=== PATIENT | female | born 1935 | race Caucasian/White ===

== ENCOUNTER 2020-10-24 09:11 | Outpatient (REF) | payer MEDICARE, OTHER, SELFPAY ==
--- NOTE | 2020-10-24 09:14 | EMG_ITS ---
This is an 84-year-old woman with a history of numbness in both heels for a few months. She has no other complaints. No medication. She is not diabetic. PHYSICAL EXAMINATION: On examination, she is alert and oriented with normal intellectual functions. Cranial nerves II through XII are normal. Muscle tone and strength are normal in all 4 extremities. Reflexes hypoactive. IMPRESSION: Sensory neuropathy. Nerve conduction EMG study: Axonal, sensory greater than motor, diffuse peripheral neuropathy in the lower extremities. EMG of the right L4-S1 innervated muscles consistent with chronic distal neuropathic changes of neuropathy. MD BLANQUITA Scott/MODL / [id number]
== END 2020-10-24 09:12 | disposition home or self-care (01) ==
LOC: HO.NEURO 09:11
PROVIDERS: Visit Provider Internal Medicine
DX: G62.9 Polyneuropathy, unspecified (principal); R20.8 Other disturbances of skin sensation
CPT/HCPCS: 95885; 95913

== ENCOUNTER 2021-03-22 09:02 | Outpatient (REF) | payer MEDICARE, OTHER, SELFPAY ==
--- NOTE | ~2021-03-22 | MM_ITS ---
EXAMINATION: MM SCREENING DIGITAL BREAST TOMOSYNTHESIS, BILATERAL CLINICAL INFORMATION: Screening. Asymptomatic. The lifetime risk of breast cancer based on the Tyrer-Cuzick Model is 1%. COMPARISON: Mammography: 08/03/2018, 06/11/2017, 03/20/2016 TECHNIQUE: Digital breast tomosynthesis is performed in both the craniocaudal and mediolateral oblique views along with computer-aided detection (CAD). Synthesized 2D images are generated from the tomosynthesis. FINDINGS: There are scattered areas of fibroglandular density (ACR BI-RADS breast composition Category b). There are no significant masses, abnormal calcifications, or other abnormalities. Parenchymal pattern is similar to prior studies. Scattered asymmetries are stable. There is no developing density. No interval architectural abnormality. Again, there are scattered bilateral predominantly ductal secretory calcifications as well as some punctate round and vascular calcifications. The axilla are unremarkable. There are some dermal lesions overlying each breast. MM/MM tomosynthesis screening BI IMPRESSION: No significant changes from prior exams. ASSESSMENT: BI-RADS 2: Benign RECOMMENDATION: Routine annual mammography screening. This patient's information was entered into a reminder system with a target due date for their next mammogram.
== END 2021-03-22 09:03 | disposition home or self-care (01) ==
LOC: HO.MAMMO 09:02
PROVIDERS: PCP Internal Medicine; Visit Provider Internal Medicine
DX: Z12.31 Encounter for screening mammogram for malignant neoplasm of breast (principal)
CPT/HCPCS: 77063; 77067

== ENCOUNTER 2021-05-03 10:46 | Outpatient (REF) | payer MEDICARE, OTHER, SELFPAY ==
--- NOTE | ~2021-05-03 | MM_ITS ---
EXAMINATION: BONE DENSITOMETRY CLINICAL INDICATION: Other specified disorders of bone density and structure. COMPARISON: Previous BD dated 05/11/2018 and baseline BD dated 01/01/2006. TECHNIQUE: Using a [employer] DXA System (software version: 13.1) manufactured by [employer], dual-energy x-ray absorptiometry was performed of the lumbar spine and left hip. The images are of good technical quality. Summary results are attached. FINDINGS: AP SPINE L1-L4: Current: BMD 1.121 g/cm2, Z-score 0.7, T-score -0.5, normal, 1.4% increase from previous, 4.1% decrease from baseline (<5% change is not significant). Prior: BMD 1.106 g/cm2. Baseline: BMD 1.169 g/cm2. LEFT FEMUR, NECK: Current: BMD 0.914 g/cm2, Z-score 1.0, T-score -0.9, normal. Prior: BMD 0.945 g/cm2. Baseline: BMD 1.026 g/cm2. LEFT FEMUR, TOTAL: Current: BMD 0.979 g/cm2, Z-score 1.5, T-score -0.2, normal, 5.0% decrease from previous, 6.5% decrease from baseline (<5% change is not significant). Prior: BMD 1.031 g/cm2. Baseline: BMD 1.047 g/cm2. IDENTIFIED RISK FACTORS: Height loss, menopause, hysterectomy, bilateral oophorectomy. HISTORY OF FRACTURE: None listed. MEDICATIONS: Vitamin D. MM/XR DEXA axial skeleton IMPRESSION: 1. DIAGNOSIS: Normal bone density based on the lowest T-score value of -0.9 in the femoral neck applying World Health Organization criteria. 2. 10-YEAR FRACTURE RISK PREDICTION, FRAX: According to the guidelines, FRAX calculation should only be performed on patients in the osteopenia bone density category. Therefore, FRAX was not performed on this patient. 3. Treatment Recommendations: NOF guidelines recommend consideration for treatment in postmenopausal women and men age 50 and older presenting with the following: -A hip or vertebral (clinical or morphometric) fracture. -T-score less than or equal to -2.5 at the femoral neck or spine after appropriate evaluation to exclude secondary causes. -Low bone mass at the hip or spine and a 10-year fracture probability by FRAX of greater than or equal to 3% for hip fracture or greater than or equal to 20% for major osteoporotic fracture based on the [place] adapted WHO algorithm. 4. Other Recommendations: All treatment decisions require clinical judgment and consideration of individual patient factors, including patient preferences, comorbidities, previous drug use, risk factors not captured in the FRAX model (e.g. frailty, falls, vitamin D deficiency, increased bone turnover, interval significant decline in bone density) and possible under or overestimation of fracture risk by FRAX. FUTURE SCAN RECOMMENDATION: People with diagnosed cases of osteoporosis or at high risk for fracture should have regular bone mineral density tests. For patients eligible for Medicare, routine testing is allowed once every 2 years. The testing frequency can be increased to one year for patients who have rapidly progressing disease, those who are receiving or discontinuing medical therapy to restore bone mass, or have additional risk factors.
== END 2021-05-03 10:47 | disposition home or self-care (01) ==
LOC: HO.MAMMO 10:46
PROVIDERS: PCP Internal Medicine; Visit Provider Nurse Practitioner Acute Care
DX: Z13.820 Encounter for screening for osteoporosis (principal); M85.80 Other specified disorders of bone density and structure, unspecified site; Z78.0 Asymptomatic menopausal state; Z98.890 Other specified postprocedural states; Z79.899 Other long term (current) drug therapy
CPT/HCPCS: 77080

== ENCOUNTER 2022-05-07 10:16 | Outpatient (REF) | payer MEDICARE, OTHER, SELFPAY ==
--- NOTE | ~2022-05-07 | MM_ITS ---
EXAMINATION: MM SCREENING DIGITAL BREAST TOMOSYNTHESIS, BILATERAL CLINICAL INFORMATION: Screening. Asymptomatic. Family history breast cancer, sister. COMPARISON: Mammography: 03/22/2021, 08/03/2018, 06/11/2017 TECHNIQUE: Digital breast tomosynthesis is performed in both the craniocaudal and mediolateral oblique views along with computer-aided detection (CAD). Synthesized 2D images are generated from the tomosynthesis. FINDINGS: There are scattered areas of fibroglandular density (ACR BI-RADS breast composition Category b). There are no significant masses, abnormal calcifications, or other abnormalities. No architectural abnormality or developing density or significant change from prior studies. There are scattered bilateral benign ductal secretory and some round and vascular calcifications. Dermal lesions are seen overlying the each breast. There is an intramammary node posterior upper outer left breast. The axilla are unremarkable. No significant changes. MM/MM tomosynthesis screening BI IMPRESSION: No mammographic evidence of malignancy. ASSESSMENT: BI-RADS 2: Benign RECOMMENDATION: Routine annual mammography screening. This patient's information was entered into a reminder system with a target due date for their next mammogram.
== END 2022-05-07 10:17 | disposition home or self-care (01) ==
LOC: HO.MAMMO 10:16
PROVIDERS: PCP Internal Medicine; Visit Provider Internal Medicine
DX: Z12.31 Encounter for screening mammogram for malignant neoplasm of breast (principal)
CPT/HCPCS: 77063; 77067

== ENCOUNTER 2022-10-02 09:47 | Outpatient (AMB) | payer MEDICARE, OTHER, SELFPAY ==
[2022-10-02 10:35] VITALS: BP 140/82; PULSE 79; O2SAT 98; BMI 28.9
--- NOTE | 2022-10-02 10:35 | MHC.PC.OV ---
Vital Signs 10/02/22 10:35 Height 5 ft 8 in Weight 190 lb BMI 28.9 BP 140/82 H Blood Pressure Location Lt brachial Position Sitting Pulse 79 Pulse Source Pulse Oximeter Pulse Oximetry (%) 98 Oxygen Delivery Method Room Air Intake Visit Reasons: PE Allergies aspirin Allergy (Unknown, Verified 10/02/22 10:36) Unknown chlorpheniramine [From Tussionex] Allergy (Unknown, Verified 10/02/22 10:36) Unknown codeine Allergy (Unknown, Verified 10/02/22 10:36) Unknown hydrochlorothiazide Allergy (Unknown, Verified 10/02/22 10:36) nose bleed hydrocodone [From Tussionex] Allergy (Unknown, Verified 10/02/22 10:36) Unknown simvastatin Allergy (Unknown, Verified 10/02/22 10:36) Unknown Medication List - Last Reconciled 10/02/22 by Deann Roberts MD acetaminophen (Tylenol) 325 mg PO QID PRN atorvastatin 10 mg PO DAILY cholecalciferol (vitamin D3) 25 mcg PO DAILY lisinopril 5 mg PO DAILY vitamin B complex 1 tab PO DAILY Tobacco use date assessed: 10/02/22 Fall risk assessment: No Falls in past year Last assessed Fall Risk: 10/02/22 Dental Screening Dental Screen Date: 10/02/22 Did you have a dental visit in the last 12 months?: Yes Did you have a dental problem in the last 6 months where you did not have access to dental care?: No Was dental information given to patient?: Patient has dentist HPI PE HPI Details 86-year-old female with a history of hypertension coming in for physical exam October last seen. high BP noted adn advsied monitor and record. [facility] Medical History (Updated 10/02/22 @ 11:27 by Deann Roberts MD) GERD (gastroesophageal reflux disease) Hypercholesterolemia Hypertension Surgical History History of bilateral cataract extraction History of total abdominal hysterectomy and bilateral salpingo-oophorectomy Family History (Updated 10/02/22 @ 10:39 by Bessy Ledezma CMA) Father Cancer Mother Hypertension Stroke Social History Housing: Condominium Alcohol intake: never Patient Tobacco Use Status: Never used Tobacco e-Cigarette/Vaping Use: Never Used Second Hand Smoke Exposure: No service: No Current occupational status: retired Cognitive needs: No Hearing needs: Yes (hearing aids) Vision needs: Yes (glasses) Questionnaire PHQ-9 Over the last 2 weeks, how often have you been bothered by any of the following problems? 1. Little interest or pleasure in doing things: not at all 2. Feeling down, depressed, or hopeless: not at all 3. Trouble falling or staying asleep, or sleeping too much: not at all 4. Feeling tired or having little energy: not at all 5. Poor appetite or overeating: not at all 6. Feeling bad about yourself - or that you are a failure or have let yourself or your family down: not at all 7. Trouble concentrating on things, such as reading the newspaper or watching television: not at all 8. Moving or speaking so slowly that other people could have noticed. Or the opposite - being so fidgety or restless that you have been moving around a lot more than usual: not at all 9. Thoughts that you would be better off or of hurting yourself in some way: not at all Total score: 0 Depression Screening Interpretation: Negative Source: Developed by Drs. Brannon Ragland, Yomaira Su, Kyrie Person and colleagues, with an educational giselle from [employer]. Thrive Questionnaire Date Thrive assessed: 10/02/22 I am a: Patient What is your living situation today?: I have a steady place to live Within the past 12 months, did the food you bought not last and you didn't have the money to get more?: Never true Within the past 12 months, did you worry whether your food would run out before you got money to buy more?: Never true Do you have trouble paying for medicines?: No Do you have trouble getting transportation to medical appointments?: No Do you have trouble paying your heating and electricity bill?: No Do you have trouble taking care of your child, family member or friend?: No Do you have trouble with day-to-day activities such as bathing, preparing meals, shopping, managing finances, etc.?: No Are you currently unemployed and looking for a job?: No Are you interested in more education?: No Currently or been in a relationship where the following occur: no concerns reported AUDIT C Alcohol Use Questionnaire (AUDIT-C) 1. How often do you have a drink containing alcohol?: Never 3. How often do you have six or more drinks on one occasion?: Never Total Score: 0 MONO-7 AMB Questionnaire MONO-7 Date MONO - 7 assessed: 10/02/22 Feeling nervous, anxious, or on edge: 0 = Not at all Not being able to stop or control worryin = Not at all Worrying too much about different things: 0 = Not at all Trouble relaxin = Not at all Being so restless that it is hard to sit still: 0 = Not at all Becoming easily annoyed or irritable: 0 = Not at all Feeling afraid as if something awful might happen: 0 = Not at all Total MONO-7 score (0-4 normal; 5-9 mild; 10-14 moderate; 15-21 severe): 0 Source: Developed by Drs. Brannon Ragland, Yomaira Su, Kyrie Person and colleagues, with an educational giselle from [employer]. Review of Systems Const Denies poor appetite and Denies weakness Eyes Denies no additional complaints ENT Reports Normal hearing present, Denies dizziness, Denies nasal congestion, Denies tinnitus and Denies sore throat Card Denies chest pain, Denies syncope, Denies rapid heart rate and Denies dyspnea Resp Denies cough and Denies dyspnea GI Denies change in stool character, Reports constipation, Denies diarrhea, Denies nausea and Denies vomiting Denies urinary frequency, Denies difficulty voiding and Denies dysuria Neuro Reports Normal hearing present, Denies confusion, Denies dizziness, Denies syncope and Denies weakness Psych Denies confusion Physical exam (Primary Care) Vital Signs: Last Vital Signs Pulse 79 10/02/22 10:35 BP 140/82 H 10/02/22 10:35 Pulse Ox 98 10/02/22 10:35 Oxygen Delivery Method Room Air 10/02/22 10:35 BMI result Body Mass Index 28.9 Tobacco/Smoking Status: Tobacco use Status Tobacco use date assessed 10/02/22 10/02/22 10:39 Patient Tobacco Use Status Never used Tobacco 10/02/22 10:37 e-Cigarette/Vaping Use Never Used 10/02/22 10:37 PHQ-9: PHQ-9 Score PHQ-9: Total score 0 10/02/22 11:11 Depression Screening Interpretation: Negative Thrive Assessment: Date of Thrive Assessment Date Thrive assessed 10/02/22 10/02/22 10:39 Currently or been in a relationship where the following occur: no concerns reported Const General: No confusion Orientation/consciousness: No confusion HENMT Head: Yes normocephalic Ears: external ears normal and TM's normal bilaterally Face and sinus: Yes normal facial exam Mouth: moist mucous membranes Throat: Yes tonsils normal Eyes Conjunctivae: conjunctivae normal Pupils: Equal, round and reactive pupils present and Pupil accommodation reflex normal Direct Ophthalmoscopy: normal light reflex Neck Neck: No lymphadenopathy Thyroid: Thyroid normal Chest Chest palpation & inspection: normal inspection of the chest Resp Effort & Inspection: normal respiratory effort and no audible wheezes Auscultation: clear to auscultation bilaterally, no crackles, no wheezes and lung sounds not diminished Cardio Rate: regular rate Rhythm: regular rhythm Peripheral pulses: radial pulses present and dorsalis pedis present GI Other: Guaiac negative stool, multiple hyper pigmented keratotic lesions on the chest as well as on the back Palpation (GI): no masses Auscultation: normal bowel sounds and normoactive bowel sounds Skin General skin exam: no rashes or lesions noted Rashes: no rashes Neuro General: No confusion Cranial nerves: Yes Equal, round and reactive pupils present and Yes Normal hearing present Cognition (Neuro): normal cognition Gait exam (Neuro): Normal gait present Motor exam (neuro): 5/5 motor strength present throughout Deep tendon reflexes (DTR's): Right brachioradialis reflex intensity grade: 2+, Left brachioradialis reflex intensity grade: 2+, Right patellar reflex intensity grade: 2+ and Left patellar reflex intensity grade: 2+ Extrem General: No edema Assessment and Plan Assessment & Plan (1) Annual physical exam: Code(s): Z00.00 - Encounter for general adult medical examination without abnormal findings (2) Hypertension: Code(s): I10 - Essential (primary) hypertension Qualifiers: Hypertension type: essential hypertension Qualified Code(s): I10 - Essential (primary) hypertension Plan: Continue with blood pressure medication. Decrease salt intake and exercise patient is on lisinopril 5 mg once a day (3) Hypercholesterolemia: Code(s): E78.00 - Pure hypercholesterolemia, unspecified Plan: Avoid fried foods, chicken skin, eggs, butter margarine, pastries and meat. Be it pork or beef they have a lot of cholesterol LDL goal of less than 130 and triglyceride of less than 150 (4) GERD (gastroesophageal reflux disease): Code(s): K21.9 - Gastro-esophageal reflux disease without esophagitis Plan: Avoid the foods that causes that usually spicy foods, tomato products, juices, coffee, soda and foods that your sensitive to. After eating do not lie down, allow 3-4 hours before in lie down. And keep the head of bed above 30 degrees to avoid the acid from going up. Coding Level of Care Code Est Pt Prev Care >65y(00874) Diagnoses Annual physical exam Z00.00 Hypertension I10 Hypertension type: essential hypertension Hypercholesterolemia E78.00 GERD (gastroesophageal reflux disease) K21.9 Additional Codes PHQ-9 - 49994 - PHQ-9 Billing: Y ([id number])
== END 2022-10-02 11:46 | disposition home or self-care (01) ==
PROVIDERS: PCP Internal Medicine; Visit Provider Internal Medicine
DX: Z00.00 Encounter for general adult medical examination without abnormal findings (principal); I10 Essential (primary) hypertension; E78.00 Pure hypercholesterolemia, unspecified; K21.9 Gastro-esophageal reflux disease without esophagitis
CPT/HCPCS: 99397

== ENCOUNTER 2023-01-20 11:36 | Outpatient (AMB) | payer MEDICARE, OTHER, SELFPAY ==
[2023-01-20 11:40] VITALS: BP 148/80; PULSE 81; O2SAT 99; BMI 28.3
--- NOTE | 2023-01-20 11:40 | MHC.PC.OV ---
Vital Signs 01/20/23 11:40 Height 5 ft 8 in Weight 186 lb BMI 28.3 BP 148/80 H Blood Pressure Location Lt brachial Position Sitting Pulse 81 Pulse Source Pulse Oximeter Pulse Oximetry (%) 99 Oxygen Delivery Method Room Air Intake Visit Reasons: 3 month f/u [employer] Required: No Home Health Clinical Liaison: Not Required per policy Accompanied by: Self / Same As Patient Allergies aspirin Allergy (Unknown, Verified 01/20/23 11:41) Unknown chlorpheniramine [From Tussionex] Allergy (Unknown, Verified 01/20/23 11:41) Unknown codeine Allergy (Unknown, Verified 01/20/23 11:41) Unknown hydrochlorothiazide Allergy (Unknown, Verified 01/20/23 11:41) nose bleed hydrocodone [From Tussionex] Allergy (Unknown, Verified 01/20/23 11:41) Unknown simvastatin Allergy (Unknown, Verified 01/20/23 11:41) Unknown Medication List - Last Reconciled 01/20/23 by Deann Roberts MD acetaminophen (Tylenol) 325 mg PO QID PRN atorvastatin 10 mg PO DAILY cholecalciferol (vitamin D3) 25 mcg PO DAILY lisinopril 10 mg PO DAILY 90 days vitamin B complex 1 tab PO DAILY Tobacco use date assessed: 10/02/22 Fall risk assessment: No Falls in past year Last assessed Fall Risk: 01/20/23 Dental Screening Dental Screen Date: 01/20/23 Did you have a dental visit in the last 12 months?: Yes Did you have a dental problem in the last 6 months where you did not have access to dental care?: No Was dental information given to patient?: Patient has dentist HPI 3 month f/u HPI Details 87-year-old overweight female with a history of hypertension hypercholesterolemia GERD last seen in September 2022. Patient is here for follow-up patient had the flu vaccine. As for blood work August 2022 with normal hemoglobin and hematocrit platelet count and white blood cell, bad cholesterol LDL is 101 triglyceride is 156 electrolytes are normal renal function normal sugar is normal liver function is fine thyroid is normal vitamin B12 normal folic acid is normal vitamin-D is normal [facility] Medical History GERD (gastroesophageal reflux disease) Hypertension Hypercholesterolemia Surgical History History of bilateral cataract extraction History of total abdominal hysterectomy and bilateral salpingo-oophorectomy Family History Father Cancer Mother Hypertension Stroke Housing: Condominium Alcohol intake: never Patient Tobacco Use Status: Never used Tobacco e-Cigarette/Vaping Use: Never Used Second Hand Smoke Exposure: No service: No Current occupational status: retired Cognitive needs: No Hearing needs: Yes (hearing aids) Vision needs: Yes (glasses) Questionnaire PHQ-9 Over the last 2 weeks, how often have you been bothered by any of the following problems? 1. Little interest or pleasure in doing things: not at all 2. Feeling down, depressed, or hopeless: not at all 3. Trouble falling or staying asleep, or sleeping too much: not at all 4. Feeling tired or having little energy: not at all 5. Poor appetite or overeating: not at all 6. Feeling bad about yourself - or that you are a failure or have let yourself or your family down: not at all 7. Trouble concentrating on things, such as reading the newspaper or watching television: not at all 8. Moving or speaking so slowly that other people could have noticed. Or the opposite - being so fidgety or restless that you have been moving around a lot more than usual: not at all 9. Thoughts that you would be better off or of hurting yourself in some way: not at all Total score: 0 Depression Screening Interpretation: Negative Depression Screening Done: Yes Source: Developed by Drs. Brannon Ragland, Yomaira Su, Kyrie Person and colleagues, with an educational giselle from [employer]. Thrive Questionnaire Date Thrive assessed: 10/02/22 AUDIT C Alcohol Use Questionnaire (AUDIT-C) 1. How often do you have a drink containing alcohol?: Never 3. How often do you have six or more drinks on one occasion?: Never Total Score: 0 MONO-7 AMB Questionnaire MONO-7 Date MONO - 7 assessed: 10/02/22 Source: Developed by Drs. Brannon Ragland, Kyrie Alexander and colleagues, with an educational giselle from [employer]. Physical exam (Primary Care) Vital Signs: Last Vital Signs Pulse 81 01/20/23 11:40 BP 148/80 H 01/20/23 11:40 Pulse Ox 99 01/20/23 11:40 Oxygen Delivery Method Room Air 01/20/23 11:40 BMI result Body Mass Index 28.3 Tobacco/Smoking Status: Tobacco use Status Tobacco use date assessed 10/02/22 01/20/23 11:45 Patient Tobacco Use Status Never used Tobacco 01/20/23 11:45 e-Cigarette/Vaping Use Never Used 01/20/23 11:45 PHQ-9: PHQ-9 Score PHQ-9: Total score 0 01/20/23 11:45 Depression Screening Interpretation: Negative Thrive Assessment: Date of Thrive Assessment Date Thrive assessed 10/02/22 01/20/23 11:45 Const General: alert; No acute distress Eyes Conjunctivae: conjunctivae normal Resp Auscultation: clear to auscultation bilaterally Cardio Rate: regular rate Rhythm: regular rhythm GI Inspection: Yes normal to inspection Extrem General: Yes normal to inspection and No edema Assessment and Plan Assessment & Plan (1) Hypertension: Code(s): I10 - Essential (primary) hypertension Qualifiers: Hypertension type: essential hypertension Qualified Code(s): I10 - Essential (primary) hypertension Plan: Continue with blood pressure medication. Decrease salt intake and exercise patient on lisinopril 5 mg once a day (2) Hypercholesterolemia: Code(s): E78.00 - Pure hypercholesterolemia, unspecified Plan: Avoid fried foods, chicken skin, eggs, butter margarine, pastries and meat. Be it pork or beef they have a lot of cholesterol LDL goal of less than 130 and triglyceride of less than 150. Patient on atorvastatin 10 mg once a day blood work done August 2022 (3) GERD (gastroesophageal reflux disease): Code(s): K21.9 - Gastro-esophageal reflux disease without esophagitis Plan: Avoid the foods that causes that usually spicy foods, tomato products, juices, coffee, soda and foods that your sensitive to. After eating do not lie down, allow 3-4 hours before in lie down. And keep the head of bed above 30 degrees to avoid the acid from going up. Medications: Changed From lisinopril 5 mg PO DAILY 90 tabs 3RF I10 - Essential (primary) hypertension To lisinopril 10 mg PO DAILY 90 days 90 tabs 2RF I10 - Essential (primary) hypertension Coding Level of Care Code Est Pt Level 4 (68654) Diagnoses Essential hypertension I10 Hypertension type: essential hypertension Hypercholesterolemia E78.00 GERD (gastroesophageal reflux disease) K21.9 Additional Codes PHQ-9 - 46502 - PHQ-9 Billing: ([id number])
== END 2023-01-20 12:17 | disposition home or self-care (01) ==
LOC: HO.HMGH 11:36
PROVIDERS: PCP Internal Medicine; Visit Provider Internal Medicine
DX: I10 Essential (primary) hypertension (principal); E78.00 Pure hypercholesterolemia, unspecified; K21.9 Gastro-esophageal reflux disease without esophagitis
CPT/HCPCS: 99214

== ENCOUNTER 2023-05-13 10:25 | Outpatient (REF) | payer MEDICARE, OTHER, SELFPAY | END 2023-05-13 10:26 | disposition home or self-care (01) | LOC: HO.MAMMO 10:25 | PROVIDERS: PCP Internal Medicine; Visit Provider Internal Medicine | DX: Z12.31 Encounter for screening mammogram for malignant neoplasm of breast (principal) | CPT/HCPCS: 77063; 77067 ==

== ENCOUNTER → 2023-05-13 10:30 | Outpatient (BNV) | payer MEDICARE, OTHER, SELFPAY | PROVIDERS: PCP Internal Medicine; Visit Provider Radiology Diagnostic Radiology | DX: Z12.31 Encounter for screening mammogram for malignant neoplasm of breast (principal) | CPT/HCPCS: 77063; 77067 ==

== ENCOUNTER 2023-07-22 11:15 | Outpatient (AMB) | payer MEDICARE, OTHER, SELFPAY ==
[2023-07-22 11:20] VITALS: BP 162/92; PULSE 89; O2SAT 97; BMI 28.9
--- NOTE | 2023-07-22 11:20 | A.OFFVIS_ITS ---
Intake Vital Signs 07/22/23 11:20 Height 5 ft 8 in Weight 190 lb BMI 28.9 BP 162/92 H Blood Pressure Location Lt brachial Position Sitting Pulse 89 Pulse Source Pulse Oximeter Pulse Oximetry (%) 97 Oxygen Delivery Method Room Air Intake Visit Reasons: HTN , SWV Allergies aspirin Allergy (Unknown, Verified 07/22/23 11:21) Unknown chlorpheniramine [From Tussionex] Allergy (Unknown, Verified 07/22/23 11:21) Unknown codeine Allergy (Unknown, Verified 07/22/23 11:21) Unknown hydrochlorothiazide Allergy (Unknown, Verified 07/22/23 11:21) nose bleed hydrocodone [From Tussionex] Allergy (Unknown, Verified 07/22/23 11:21) Unknown simvastatin Allergy (Unknown, Verified 07/22/23 11:21) Unknown Medication List - Last Reconciled 07/22/23 by Deann Roberts MD acetaminophen (Tylenol) 325 mg PO QID PRN atorvastatin 10 mg PO DAILY cholecalciferol (vitamin D3) 25 mcg PO DAILY lisinopril 10 mg PO DAILY 90 days vitamin B complex 1 tab PO DAILY vitamins A,C,N-ymqt-zszuxi 2,148 mcg-113 mg-45 mg-17.4mg (PreserVision AREDS) 1 tab PO BID HPI HTN , SWV HPI Details 87-year-old overweight female with hyper tension hypercholesterolemia GERD last seen in December 2022 patient is here for an annual well visit. Colonoscopy done in 2008 mammogram is up-to-date May 2023 bone density was April 2021. Blood work done in [facility] July 2023 normal blood count with no anemia platelet count is normal bad cholesterol is 106 LDL of 176 normal B12 vitamin-D electrolytes good sodium potassium kidney function normal sugar is normal liver function is normal thyroid is normal. BP is high here PFSH Medical History GERD (gastroesophageal reflux disease) Hypertension Hypercholesterolemia Surgical History History of bilateral cataract extraction History of total abdominal hysterectomy and bilateral salpingo-oophorectomy Family History Father Cancer Mother Hypertension Stroke Social History Housing: Condominium Alcohol intake: never Patient Tobacco Use Status: Never used Tobacco e-Cigarette/Vaping Use: Never Used Second Hand Smoke Exposure: No service: No Current occupational status: retired Cognitive needs: No Hearing needs: Yes (hearing aids) Vision needs: Yes (glasses) Questionnaire Medicare Wellness Checkup What is your age?: 80 or older What gender do you identify with?: female During the past 4 weeks, how much have you been bothered by emotional problems such as feeling anxious, depressed, irritable, sad or downhearted, and blue?: not at all During the past 4 weeks, has your physical & emotional health limited your social activities with family, friends, neighbors, or groups?: not at all During the past 4 weeks, how much bodily pain have you generally had?: no pain During the past 4 weeks, was someone available to help you if you needed & wanted help?: no, not at all During the past 4 weeks, what was the hardest physical activity you could do for at least 2 minutes?: moderate Can you get to places out of walking distance without help? (For eg., can you travel alone on buses, taxis or drive your car?): Yes Can you go shopping for groceries or clothes without someone's help?: Yes Can you prepare your own meals?: Yes Can you do your housework without help?: Yes Because of any health problems, do you need the help of another person with your personal care needs such as eating, bathing, dressing or getting around the house?: No Can you handle your own money without help?: Yes During the past 4 weeks, how would you rate your health in general?: very good During the past 4 weeks how have things been going for you?: very well; could hardly better Are you having difficulties driving your car?: no Do you always fasten your seat belt when you are in a car?: yes, usually During past 4 weeks, have you been bothered by the following: never: Falling or dizzy when standing up, Sexual problems?, Trouble eating well?, Teeth or denture problems?, Problems using the telephone? and Tiredness or fatigue? Have you fallen 2 or more times in the past year?: No Are you afraid of falling?: No Are you a smoker?: no During the past 4 weeks, how many drinks of wine, beer, or other alcoholic beverages did you have?: no alcohol at all Do you exercise for about 20 minutes 3 or more times a week?: yes, most of the time Have you been given information to help with the following?: no: Hazards in your house that might hurt you? and no: Keeping track of your medications? How often do you have trouble taking medicines the way you have been told to take them?: I always take medicine as prescribed How confident are you that you can control & manage most of your health problems?: very confident What is your race?: White PHQ-9 Over the last 2 weeks, how often have you been bothered by any of the following problems? 1. Little interest or pleasure in doing things: not at all 2. Feeling down, depressed, or hopeless: not at all 3. Trouble falling or staying asleep, or sleeping too much: not at all 4. Feeling tired or having little energy: not at all 5. Poor appetite or overeating: not at all 6. Feeling bad about yourself - or that you are a failure or have let yourself or your family down: not at all 7. Trouble concentrating on things, such as reading the newspaper or watching television: not at all 8. Moving or speaking so slowly that other people could have noticed. Or the opposite - being so fidgety or restless that you have been moving around a lot more than usual: not at all 9. Thoughts that you would be better off or of hurting yourself in some way: not at all Total score: 0 Depression Screening Interpretation: Negative Depression Screening Done: Yes Source: Developed by Drs. Brannon Ragland, Yomaira Su, Kyrie Person and colleagues, with an educational giselle from [employer] Thrive Questionnaire Date Thrive assessed: 07/22/23 I am a: Patient What is your living situation today?: I have a steady place to live Within the past 12 months, did the food you bought not last and you didn't have the money to get more?: Never true Within the past 12 months, did you worry whether your food would run out before you got money to buy more?: Never true Do you have trouble paying for medicines?: No Do you have trouble getting transportation to medical appointments?: No Do you have trouble paying your heating and electricity bill?: No Do you have trouble taking care of your child, family member or friend?: No Do you have trouble with day-to-day activities such as bathing, preparing meals, shopping, managing finances, etc.?: No Are you currently unemployed and looking for a job?: No Are you interested in more education?: No Currently or been in a relationship where the following occur: no concerns reported THRIVE Score: 0 MONO-7 AMB Questionnaire MONO-7 Date MONO - 7 assessed: 07/22/23 Feeling nervous, anxious, or on edge: 0 = Not at all Not being able to stop or control worryin = Not at all Worrying too much about different things: 0 = Not at all Trouble relaxin = Not at all Being so restless that it is hard to sit still: 0 = Not at all Becoming easily annoyed or irritable: 0 = Not at all Feeling afraid as if something awful might happen: 0 = Not at all Total MONO-7 score (0-4 normal; 5-9 mild; 10-14 moderate; 15-21 severe): 0 Source: Developed by Drs. Brannon Ragland, Yomaira Su, Kyrie Person and colleagues, with an educational giselle from [employer] Review of Systems Const Denies poor appetite and Denies weakness Eyes Denies no additional complaints ENT Reports Normal hearing present, Denies dizziness, Denies nasal congestion, Denies tinnitus and Denies sore throat Card Denies chest pain, Denies syncope, Denies rapid heart rate and Denies dyspnea Resp Denies cough and Denies dyspnea GI Denies change in stool character, Reports constipation, Denies diarrhea, Denies nausea and Denies vomiting Denies urinary frequency, Denies difficulty voiding and Denies dysuria Neuro Reports Normal hearing present, Denies confusion, Denies dizziness, Denies syncope and Denies weakness Psych Denies confusion Physical Exam Vital Signs: Last Vital Signs Pulse 89 07/22/23 11:20 BP 162/92 H 07/22/23 11:20 Pulse Ox 97 07/22/23 11:20 Oxygen Delivery Method Room Air 07/22/23 11:20 BMI result Body Mass Index 28.9 Const General: No confusion Orientation/consciousness: No confusion HEENT Head: Yes normocephalic Ears: external ears normal and TM's normal bilaterally Face and sinus: Yes normal facial exam Mouth: moist mucous membranes Throat: Yes tonsils normal Eyes Conjunctivae: conjunctivae normal Pupils: Equal, round and reactive pupils present and Pupil accommodation reflex normal Direct Ophthalmoscopy: normal light reflex Neck Neck: No lymphadenopathy Thyroid: Thyroid normal Chest Chest palpation & inspection: normal inspection of the chest Resp Effort & Inspection: normal respiratory effort and no audible wheezes Auscultation: clear to auscultation bilaterally, no crackles, no wheezes and lung sounds not diminished Cardio Rate: regular rate Rhythm: regular rhythm Peripheral pulses: radial pulses present and dorsalis pedis present GI Palpation (GI): no masses Auscultation: normal bowel sounds and normoactive bowel sounds Rectal Exam - Female: deferred Skin General skin exam: no rashes or lesions noted Rashes: no rashes Neuro General: No confusion Cranial nerves: Yes Equal, round and reactive pupils present and Yes Normal hearing present Cognition (Neuro): normal cognition Gait exam (Neuro): Normal gait present Motor exam (neuro): 5/5 motor strength present throughout Deep tendon reflexes (DTR's): Right brachioradialis reflex intensity grade: 2+, Left brachioradialis reflex intensity grade: 2+, Right patellar reflex intensity grade: 2+ and Left patellar reflex intensity grade: 2+ Extrem General: No edema Assessment & Plan Assessment & Plan (1) Medicare annual wellness visit, initial: Code(s): Z00.00 - Encounter for general adult medical examination without abnormal findings Plan: Patient is advised to eat healthy, keep well hydrated, keep active and have adequate sleep. (2) Hypertension: Code(s): I10 - Essential (primary) hypertension Qualifiers: Hypertension type: essential hypertension Qualified Code(s): I10 - Essential (primary) hypertension Plan: Continue with blood pressure medication. Decrease salt intake and exercise on lisinopril 10 mg once a day (3) Hypercholesterolemia: Code(s): E78.00 - Pure hypercholesterolemia, unspecified Plan: Avoid fried foods, chicken skin, eggs, butter margarine, pastries and meat. Be it pork or beef they have a lot of cholesterol on atorvastatin 10 mg once a day blood work just done in July 2023 (4) GERD (gastroesophageal reflux disease): Code(s): K21.9 - Gastro-esophageal reflux disease without esophagitis Plan: Avoid the foods that causes that usually spicy foods, tomato products, juices, coffee, soda and foods that your sensitive to. After eating do not lie down, allow 3-4 hours before in lie down. And keep the head of bed above 30 degrees to avoid the acid from going up. Quality Reporting (2019) Depression/Bipolar (159/160/161/177) PHQ-9: Total score: 0 Coding Level of Care Code Medicare Subsequent (G0439) Diagnoses Medicare annual wellness visit, initial Z00.00 Essential hypertension I10 Hypertension type: essential hypertension Hypercholesterolemia E78.00 GERD (gastroesophageal reflux disease) K21.9 Additional Codes PHQ-9 - 02400 - PHQ-9 Billing: ([id number])
== END 2023-07-22 12:29 | disposition home or self-care (01) ==
PROVIDERS: PCP Internal Medicine; Visit Provider Internal Medicine
DX: Z00.00 Encounter for general adult medical examination without abnormal findings (principal); I10 Essential (primary) hypertension; E78.00 Pure hypercholesterolemia, unspecified; K21.9 Gastro-esophageal reflux disease without esophagitis
CPT/HCPCS: G0439

== ENCOUNTER 2023-10-21 09:48 | Outpatient (AMB) | payer MEDICARE, OTHER, SELFPAY ==
[2023-10-21 09:54] VITALS: BP 132/72; PULSE 98; O2SAT 95; BMI 28.6
--- NOTE | 2023-10-21 09:54 | MHC.PC.OV ---
Vital Signs 10/21/23 09:54 Height 5 ft 8 in Weight 188 lb BMI 28.6 BP 132/72 Blood Pressure Location Lt brachial Position Sitting Pulse 98 Pulse Source Pulse Oximeter Pulse Oximetry (%) 95 Oxygen Delivery Method Room Air Intake Visit Reasons: HTN ok per Bessy Allergies aspirin Allergy (Unknown, Verified 10/21/23 09:55) Unknown chlorpheniramine [From Tussionex] Allergy (Unknown, Verified 10/21/23 09:55) Unknown codeine Allergy (Unknown, Verified 10/21/23 09:55) Unknown hydrochlorothiazide Allergy (Unknown, Verified 10/21/23 09:55) nose bleed hydrocodone [From Tussionex] Allergy (Unknown, Verified 10/21/23 09:55) Unknown simvastatin Allergy (Unknown, Verified 10/21/23 09:55) Unknown Tobacco use date assessed: 10/21/23 Fall risk assessment: No Falls in past year Last assessed Fall Risk: 10/21/23 Dental Screening Dental Screen Date: 10/21/23 Did you have a dental visit in the last 12 months?: Yes Did you have a dental problem in the last 6 months where you did not have access to dental care?: No Was dental information given to patient?: Patient has dentist HPI HTN ok per Bessy HPI Details 87-year-old overweight female with hypertension hypercholesterolemia and GERD last seen in 07/20/2023 for annual wellness. Patient's mammogram is up-to-date May 2023 bone density is due. Patient's blood work last done in [id number] blood count is within normal limits no anemia white blood cell is fine platelet count is good LDL is 106 triglyceride 139 HDL is 42 normal B12 normal vitamin-D sodium potassium within normal limits kidney function is normal liver function is good thyroid is normal [facility] Medical History GERD (gastroesophageal reflux disease) Hypertension Hypercholesterolemia Surgical History History of bilateral cataract extraction History of total abdominal hysterectomy and bilateral salpingo-oophorectomy Family History Father Cancer Mother Hypertension Stroke [facility] Alcohol intake: never Patient Tobacco Use Status: Never used Tobacco Tobacco use type: Cigarette e-Cigarette/Vaping Use: Never Used Second Hand Smoke Exposure: No service: No Current occupational status: retired Cognitive needs: No Hearing needs: Yes (hearing aids) Vision needs: Yes (glasses) Questionnaire PHQ-9 Over the last 2 weeks, how often have you been bothered by any of the following problems? 1. Little interest or pleasure in doing things: not at all 2. Feeling down, depressed, or hopeless: not at all 3. Trouble falling or staying asleep, or sleeping too much: not at all 4. Feeling tired or having little energy: not at all 5. Poor appetite or overeating: not at all 6. Feeling bad about yourself - or that you are a failure or have let yourself or your family down: not at all 7. Trouble concentrating on things, such as reading the newspaper or watching television: not at all 8. Moving or speaking so slowly that other people could have noticed. Or the opposite - being so fidgety or restless that you have been moving around a lot more than usual: not at all 9. Thoughts that you would be better off or of hurting yourself in some way: not at all Total score: 0 Depression Screening Interpretation: Negative Depression Screening Done: Yes Source: Developed by Drs. Brannon Ragland, Yomaira Su, Kyrie Person and colleagues, with an educational giselle from [employer]. Thrive Questionnaire Date Thrive assessed: 07/22/23 AUDIT C Alcohol Use Questionnaire (AUDIT-C) 1. How often do you have a drink containing alcohol?: Never 3. How often do you have six or more drinks on one occasion?: Never Total Score: 0 MONO-7 AMB Questionnaire MONO-7 Date MONO - 7 assessed: 07/22/23 Source: Developed by Drs. Brannon Ragland, Yomaira Su, Kyrie Person and colleagues, with an educational giselle from [employer]. Physical exam (Primary Care) Vital Signs: Last Vital Signs Pulse 98 10/21/23 09:54 BP 132/72 10/21/23 09:54 Pulse Ox 95 10/21/23 09:54 Oxygen Delivery Method Room Air 10/21/23 09:54 BMI result Body Mass Index 28.6 Tobacco/Smoking Status: Tobacco use Status Tobacco use date assessed 10/21/23 10/21/23 09:55 Patient Tobacco Use Status Never used Tobacco 10/21/23 09:55 Tobacco use type Cigarette 10/21/23 09:55 e-Cigarette/Vaping Use Never Used 10/21/23 09:55 PHQ-9: PHQ-9 Score PHQ-9: Total score 0 10/21/23 10:09 Depression Screening Interpretation: Negative Thrive Assessment: Date of Thrive Assessment Date Thrive assessed 07/22/23 10/21/23 09:55 Const General: alert; No acute distress Eyes Conjunctivae: conjunctivae normal Resp Auscultation: clear to auscultation bilaterally Cardio Rate: regular rate Rhythm: regular rhythm GI Inspection: Yes normal to inspection Extrem General: Yes normal to inspection and No edema Assessment and Plan Assessment & Plan (1) Hypertension: Code(s): I10 - Essential (primary) hypertension Qualifiers: Hypertension type: essential hypertension Qualified Code(s): I10 - Essential (primary) hypertension Plan: Continue with blood pressure medication. Decrease salt intake and exercise patient takes lisinopril 10 mg once a day (2) Hypercholesterolemia: Code(s): E78.00 - Pure hypercholesterolemia, unspecified Plan: Avoid fried foods, chicken skin, eggs, butter margarine, pastries and meat. Be it pork or beef they have a lot of cholesterol LDL goal of less than 130 and triglyceride of less than 150 07/20/2023 last blood work on atorvastatin 10 mg once a day (3) GERD (gastroesophageal reflux disease): Code(s): K21.9 - Gastro-esophageal reflux disease without esophagitis Plan: Avoid the foods that causes that usually spicy foods, tomato products, juices, coffee, soda and foods that your sensitive to. After eating do not lie down, allow 3-4 hours before in lie down. And keep the head of bed above 30 degrees to avoid the acid from going up. (4) Overweight (BMI 25.0-29.9): Code(s): E66.3 - Overweight Plan: Patient is advised to eat healthy, keep well hydrated, keep active and have adequate sleep. Coding Level of Care Code Est Pt Level 4 (83402) Diagnoses Essential hypertension I10 Hypertension type: essential hypertension Hypercholesterolemia E78.00 GERD (gastroesophageal reflux disease) K21.9 Overweight (BMI 25.0-29.9) E66.3 Additional Codes PHQ-9 - 51608 - PHQ-9 Billing: ([id number])
== END 2023-10-21 10:27 | disposition home or self-care (01) ==
PROVIDERS: PCP Internal Medicine; Visit Provider Internal Medicine
DX: I10 Essential (primary) hypertension (principal); E78.00 Pure hypercholesterolemia, unspecified; E66.3 Overweight; Z68.28 Body mass index [BMI] 28.0-28.9, adult; K21.9 Gastro-esophageal reflux disease without esophagitis
CPT/HCPCS: 99214

== ENCOUNTER 2024-05-18 10:34 | Outpatient (REF) | payer MEDICARE, OTHER, SELFPAY | END 2024-05-18 10:35 | disposition home or self-care (01) | LOC: HO.MAMMO 10:34 | PROVIDERS: PCP Internal Medicine; Visit Provider Internal Medicine | DX: Z12.31 Encounter for screening mammogram for malignant neoplasm of breast (principal) | CPT/HCPCS: 77063; 77067 ==

== ENCOUNTER → 2024-05-18 10:45 | Outpatient (BNV) | payer MEDICARE, OTHER, SELFPAY | PROVIDERS: PCP Internal Medicine; Visit Provider Internal Medicine | DX: Z12.31 Encounter for screening mammogram for malignant neoplasm of breast (principal) | CPT/HCPCS: 77063; 77067 ==

== ENCOUNTER 2024-07-20 11:09 | Outpatient (AMB) | payer MEDICARE, OTHER, SELFPAY ==
[2024-07-20 11:13] VITALS: BP 132/72; PULSE 80; O2SAT 98; BMI 28.1
--- NOTE | 2024-07-20 11:13 | MHC.PC.OV ---
Vital Signs 07/20/24 11:13 Height 5 ft 8 in Weight 185 lb BMI 28.1 BP 132/72 Blood Pressure Location Lt brachial Position Sitting Pulse 80 Pulse Source Pulse Oximeter Pulse Oximetry (%) 98 Oxygen Delivery Method Room Air Intake Visit Reasons: Annual Exam Allergies aspirin Allergy (Unknown, Verified 07/20/24 11:14) Unknown chlorpheniramine [From Tussionex] Allergy (Unknown, Verified 07/20/24 11:14) Unknown codeine Allergy (Unknown, Verified 07/20/24 11:14) Unknown hydrochlorothiazide Allergy (Unknown, Verified 07/20/24 11:14) nose bleed hydrocodone [From Tussionex] Allergy (Unknown, Verified 07/20/24 11:14) Unknown simvastatin Allergy (Unknown, Verified 07/20/24 11:14) Unknown Medication List - Last Reconciled 07/20/24 by Deann Roberts MD acetaminophen (Tylenol) 325 mg PO QID PRN atorvastatin 10 mg PO DAILY cholecalciferol (vitamin D3) 25 mcg PO DAILY lisinopril 10 mg PO DAILY 90 days vitamins A,C,E-bkgb-qhxmdp 2,148 mcg-113 mg-45 mg-17.4mg (PreserVision AREDS) 1 tab PO BID Tobacco use date assessed: 07/20/24 Fall risk assessment: No Falls in past year Last assessed Fall Risk: 07/20/24 Dental Screening Dental Screen Date: 07/20/24 Did you have a dental visit in the last 12 months?: Yes Did you have a dental problem in the last 6 months where you did not have access to dental care?: No Was dental information given to patient?: Patient has dentist [facility] Medical History GERD (gastroesophageal reflux disease) Hypertension Hypercholesterolemia Surgical History History of bilateral cataract extraction History of total abdominal hysterectomy and bilateral salpingo-oophorectomy Family History Father Cancer Mother Hypertension Stroke Social History Housing: Condominium Alcohol intake: never Patient Tobacco Use Status: Never used Tobacco Tobacco use type: Cigarette e-Cigarette/Vaping Use: Never Used Second Hand Smoke Exposure: No service: No Current occupational status: retired Cognitive needs: No Hearing needs: Yes (hearing aids) Vision needs: Yes (glasses) Questionnaire PHQ-9 Over the last 2 weeks, how often have you been bothered by any of the following problems? 1. Little interest or pleasure in doing things: not at all 2. Feeling down, depressed, or hopeless: not at all 3. Trouble falling or staying asleep, or sleeping too much: not at all 4. Feeling tired or having little energy: not at all 5. Poor appetite or overeating: not at all 6. Feeling bad about yourself - or that you are a failure or have let yourself or your family down: not at all 7. Trouble concentrating on things, such as reading the newspaper or watching television: not at all 8. Moving or speaking so slowly that other people could have noticed. Or the opposite - being so fidgety or restless that you have been moving around a lot more than usual: not at all 9. Thoughts that you would be better off or of hurting yourself in some way: not at all Total score: 0 Depression Screening Interpretation: Negative Depression Screening Done: Yes Source: Developed by Drs. Brannon Ragland, Yomaira Su, Kyrie Person and colleagues, with an educational giselle from [employer] (?). Thrive Questionnaire Date Thrive assessed: 07/20/24 I am a: Patient What is your living situation today?: I have a steady place to live Within the past 12 months, did the food you bought not last and you didn't have the money to get more?: Never true Within the past 12 months, did you worry whether your food would run out before you got money to buy more?: Never true Do you have trouble paying for medicines?: No Do you have trouble getting transportation to medical appointments?: No Do you have trouble paying your heating and electricity bill?: No Do you have trouble taking care of your child, family member or friend?: No Do you have trouble with day-to-day activities such as bathing, preparing meals, shopping, managing finances, etc.?: No Are you currently unemployed and looking for a job?: No Are you interested in more education?: No Please select the resources that you would like help with: None Currently or been in a relationship where the following occur: I choose not to answer THRIVE Score: 0 AUDIT C Alcohol Use Questionnaire (AUDIT-C) 1. How often do you have a drink containing alcohol?: Never Total Score: 0 MONO-7 AMB Questionnaire MONO-7 Date MONO - 7 assessed: 07/22/23 Feeling nervous, anxious, or on edge: 0 = Not at all Not being able to stop or control worryin = Not at all Worrying too much about different things: 0 = Not at all Trouble relaxin = Not at all Being so restless that it is hard to sit still: 0 = Not at all Becoming easily annoyed or irritable: 0 = Not at all Feeling afraid as if something awful might happen: 0 = Not at all Total MONO-7 score (0-4 normal; 5-9 mild; 10-14 moderate; 15-21 severe): 0 Source: Developed by Drs. Brannon Ragland, Yomaira Su, Kyrie Person and colleagues, with an educational giselle from [employer] (?). MONO-7 Assessment Billing MONO-7 Assessment Tool: MONO-7 Assessment 52990 Review of Systems Const Denies poor appetite and Denies weakness Eyes Denies no additional complaints ENT Reports Normal hearing present, Denies dizziness, Denies nasal congestion, Denies tinnitus and Denies sore throat Card Denies chest pain, Denies syncope, Denies rapid heart rate and Denies dyspnea Resp Denies cough and Denies dyspnea GI Denies change in stool character, Reports constipation, Denies diarrhea, Denies nausea and Denies vomiting Denies urinary frequency, Denies difficulty voiding and Denies dysuria Neuro Reports Normal hearing present, Denies confusion, Denies dizziness, Denies syncope and Denies weakness Psych Denies confusion Physical exam (Primary Care) Vital Signs: Last Vital Signs Pulse 80 07/20/24 11:13 BP 132/72 07/20/24 11:13 Pulse Ox 98 07/20/24 11:13 Oxygen Delivery Method Room Air 07/20/24 11:13 BMI result Body Mass Index 28.1 Tobacco/Smoking Status: Tobacco use Status Tobacco use date assessed 07/20/24 07/20/24 11:23 Patient Tobacco Use Status Never used Tobacco 07/20/24 11:13 Tobacco use type Cigarette 07/20/24 11:13 e-Cigarette/Vaping Use Never Used 07/20/24 11:13 PHQ-9: PHQ-9 Score PHQ-9: Total score 0 07/20/24 12:07 Depression Screening Interpretation: Negative Thrive Assessment: Date of Thrive Assessment Date Thrive assessed 07/20/24 07/20/24 11:23 Currently or been in a relationship where the following occur: I choose not to answer Const General: No confusion Orientation/consciousness: No confusion HENMT Head: Yes normocephalic Ears: external ears normal and TM's normal bilaterally Face and sinus: Yes normal facial exam Mouth: moist mucous membranes Throat: Yes tonsils normal Eyes Conjunctivae: conjunctivae normal Pupils: Equal, round and reactive pupils present and Pupil accommodation reflex normal Direct Ophthalmoscopy: normal light reflex Neck Neck: No lymphadenopathy Thyroid: Thyroid normal Chest Chest palpation & inspection: normal inspection of the chest Resp Effort & Inspection: normal respiratory effort and no audible wheezes Auscultation: clear to auscultation bilaterally, no crackles, no wheezes and lung sounds not diminished Cardio Rate: regular rate Rhythm: regular rhythm Peripheral pulses: radial pulses present and dorsalis pedis present GI Other: guaiac neg Palpation (GI): no masses Auscultation: normal bowel sounds and normoactive bowel sounds Skin General skin exam: no rashes or lesions noted Rashes: no rashes Neuro General: No confusion Cranial nerves: Yes Equal, round and reactive pupils present and Yes Normal hearing present Cognition (Neuro): normal cognition Gait exam (Neuro): Normal gait present Motor exam (neuro): 5/5 motor strength present throughout Deep tendon reflexes (DTR's): Right brachioradialis reflex intensity grade: 2+, Left brachioradialis reflex intensity grade: 2+, Right patellar reflex intensity grade: 2+ and Left patellar reflex intensity grade: 2+ Extrem General: No edema Coding Level of Care Code Est Pt Prev Care >65y(76245) Diagnoses Essential hypertension I10 Hypertension type: essential hypertension Hypercholesterolemia E78.00 GERD (gastroesophageal reflux disease) K21.9 Overweight (BMI 25.0-29.9) E66.3 Anemia D64.9 Medicare annual wellness visit, subsequent Z00.00 Additional Codes MONO-7 Assessment Billing - MONO-7 Assessment Tool: MONO-7 Assessment 09851 ([id number]) Assessment & Plan Assessment & Plan (1) Hypertension: Code(s): I10 - Essential (primary) hypertension Category: Medical Qualifiers: Hypertension type: essential hypertension Qualified Code(s): I10 - Essential (primary) hypertension Plan: Continue with blood pressure medication. Decrease salt intake and exercise on lisinopril 10 mg once a day (2) Hypercholesterolemia: Code(s): E78.00 - Pure hypercholesterolemia, unspecified Category: Medical Plan: Avoid fried foods, chicken skin, eggs, butter margarine, pastries and meat. Be it pork or beef they have a lot of cholesterol atorvastatin 10 mg once a (3) GERD (gastroesophageal reflux disease): Code(s): K21.9 - Gastro-esophageal reflux disease without esophagitis Category: Medical Plan: Avoid the foods that causes that usually spicy foods, tomato products, juices, coffee, soda and foods that your sensitive to. After eating do not lie down, allow 3-4 hours before in lie down. And keep the head of bed above 30 degrees to avoid the acid from going up. (4) Overweight (BMI 25.0-29.9): Code(s): E66.3 - Overweight Category: Medical Plan: Diet and exercise (5) Anemia: Code(s): D64.9 - Anemia, unspecified Category: Medical Plan: Noted on the last blood work. Will follow-up (6) Medicare annual wellness visit, subsequent: Code(s): Z00.00 - Encounter for general adult medical examination without abnormal findings Category: Medical Plan: Patient is advised to eat healthy, keep well hydrated, keep active and have adequate sleep. Plan History of Present Illness The patient is an 88-year-old female presenting for a wellness l exam. She has a background of essential hypertension on lisinopril 10 mg once daily. Her lipid profile, managed with atorvastatin 10 mg daily, shows LDL and triglycerides at optimal levels. Gastroesophageal Reflux Disease has been well-controlled through dietary choices, with no current issues of swallowing or heartburn. Osteopenia is monitored, with the most recent bone density scan from 2021. Mild anemia was detected with hemoglobin at 11.6 g/dL. Vitamin B12 and folic acid levels remain normal. The patient does not report fatigue or dyspnea. Recent labs indicated a slightly elevated fasting glucose. She maintains her vaccinations, including a shingles vaccine two weeks ago. [facility] Dr. Flaherty [facility] Health Maintenance - Most recent mammogram in April 2024 - Last bone density scan in April 2021 - Received shingles vaccine two weeks ago - Current with pneumonia and RSV vaccines - Recent lab work showing mild anemia - Blood lipid monitoring showing controlled cholesterol levels - Lifestyle modifications for GERD management - Encouragement of hydration and balanced diet Social History - Engages in regular exercise, specifically osteo-related activities - Diet includes efforts to maintain healthy eating habits - Experiences mild nocturia, waking once or twice per night - Adequate vaccine coverage, staying up-to-date with recommended immunizations Review of Systems - General: Denies fatigue, reports feeling well - Cardiovascular: Denies chest pain, pressure, or discomfort - Respiratory: Denies cough, breathing difficulties, or dyspnea - Gastrointestinal: Denies dysphagia, heartburn, or irregular bowel habits - Genitourinary: Reports nocturia (awakening 1-2 times per night) - Neurological: Denies headache, dizziness, or cognitive concerns - Musculoskeletal: Denies joint pain, reports engaging in regular exercise Physical Exam General: Cooperative, healthy appearing, comfortable, no acute distress and well developed Orientation: Patient oriented x3 Limitations: No limitations Head: Normal to inspection Ears: Hearing grossly normal bilaterally Nose: Normal external nose present Face and sinus: Normal facial exam Eyes: Appearance normal, both eyes and all related structures Neck: Normal visual inspection and Yes full ROM Respiratory: Normal respiratory effort and able to speak in complete sentences. Clear to auscultation bilaterally Cardiovascular: Regular rate and rhythm. Heart is regular, but fast GI: Normal to inspection. Soft to palpation and nontender Skin: No rashes or lesions noted Neuro: Patient oriented x3 Extremities: Normal to inspection Results - Labs: Hemoglobin 11.6 g/dL, Hematocrit 36.9%, LDL 100 mg/dL, Triglycerides 143 mg/dL, Blood Glucose 102 mg/dL, B12, folic acid, and electrolytes normal Plan I will maintain the current treatment of lisinopril 10 mg daily for hypertension. The lipid levels of 100 mg/dL LDL and 143 mg/dL triglycerides are stable, so treatment with atorvastatin 10 mg once daily will continue. GERD is controlled through non-pharmacological measures, and mild anemia will be monitored with routine labs, ensuring adequate dietary iron. Blood glucose levels necessitate further observation given its mild elevation. Vaccinations are up to date, and lifestyle practices emphasize hydration and nutrition. Patient was informed and verbally consented to the use of an ambient scribe for clinic note documentation during this visit. Discussion Notes During our discussion, I advised on maintaining current medication regimens for hypertension and cholesterol with lisinopril and atorvastatin, respectively. We reviewed the very mild anemia and discussed dietary sources of iron. We talked about her elevated blood glucose levels, noting that they were not at a threshold indicating diabetes. I emphasized the importance of continuous monitoring. I explained the significance of her vaccination status and healthy lifestyle, highlighting that she should maintain hydration and balanced nutrition. Follow-up labs will be critical in ongoing health assessment, and no immediate intervention is needed for current values outside of monitoring and health maintenance practices. Patient Instructions - Continue lisinopril 10 mg daily - Take atorvastatin 10 mg daily - Monitor diet for iron-rich foods - Encourage hydration and balanced meals - Stay active with regular exercise - Follow-up with lab work as scheduled - Maintain up-to-date vaccine status - Report any unusual symptoms or concerns promptly
== END 2024-07-20 12:32 | disposition home or self-care (01) ==
PROVIDERS: PCP Internal Medicine; Visit Provider Internal Medicine
DX: Z00.00 Encounter for general adult medical examination without abnormal findings (principal); Z68.28 Body mass index [BMI] 28.0-28.9, adult; E66.3 Overweight; I10 Essential (primary) hypertension; E78.00 Pure hypercholesterolemia, unspecified; K21.9 Gastro-esophageal reflux disease without esophagitis; D64.9 Anemia, unspecified

== ENCOUNTER → 2024-07-20 11:09 | Outpatient (BNVA) | payer MEDICARE, OTHER, SELFPAY | PROVIDERS: PCP Internal Medicine; Visit Provider Internal Medicine | DX: Z00.00 Encounter for general adult medical examination without abnormal findings (principal); I10 Essential (primary) hypertension; E78.00 Pure hypercholesterolemia, unspecified; K21.9 Gastro-esophageal reflux disease without esophagitis; D64.9 Anemia, unspecified; E66.3 Overweight; Z68.28 Body mass index [BMI] 28.0-28.9, adult; Z71.3 Dietary counseling and surveillance | CPT/HCPCS: 96127; 99397 ==